=== PATIENT | male | born 1980 | race Caucasian/White ===

== ENCOUNTER 2019-07-23 12:07 | Emergency (ER) | payer OTHER ==
[~2019-07-23] VITALS: Ht 172.7 cm; Wt 81.0 kg
[2019-07-23 14:08] VITALS: BP 131/94
== END 2019-07-23 14:30 | disposition home or self-care (01) ==
LOC: ER 12:07
DX: J30.9 Allergic rhinitis, unspecified (principal); J06.9 Acute upper respiratory infection, unspecified
CPT/HCPCS: 99283